=== PATIENT | male | born 1940 | race Caucasian/White ===

== ENCOUNTER 2020-08-25 12:03 | Inpatient (IN) ==
[2020-08-25] MEDS ORDERED: *HR* OxyCODONE/APAP 5/325 TABLET PO PRN (17:22)
[2020-08-25] MEDS: *HR* Heparin 5,000 UNIT/ML VIAL SQ SCH (18:57)
[2020-08-25] MEDS ORDERED: *HR* Warfarin 3 MG TABLET PO SCH (19:01)
[2020-08-25] MEDS: Sennosides/Docusate Sodium TABLET PO SCH (21:33)
[2020-08-25] MEDS: Metoprolol XL (24 HR) Succ 50 MG TAB.ER.24H PO SCH (21:34)
[2020-08-25] MEDS: Cholecalciferol (D-3) 1,000 UNIT (25MCG) TABLET PO SCH (22:11)
[2020-08-26] MEDS: *HR* Heparin 5,000 UNIT/ML VIAL SQ SCH (06:03)
[2020-08-26 06:51] LABS: Basophils % 0.6 %; Eosinophils # 0.3 K/mcL (0.0-0.6); Eosinophils % 3.6 %; Hemoglobin 10.1 g/dL (12.9-16.9); Immature Granulocytes % 0.6 % (0-4); Lymphocytes # 0.5 K/mcL (0.6-4.6); Lymphocytes % 7.8 %; Mean Corpuscular HGB Conc 32.6 g/dL (31.6-35.5); Mean Corpuscular Hemoglobin 35.8 pg (28.0-33.3); Mean Corpuscular Volume 109.9 fL (83.0-100.0); Monocytes % 14.8 %; Platelet Count 181 K/mcL (140-400); Red Blood Count 2.82 M/mcL (4.19-5.50); Red Cell Distribution Width 16.9 % (11.5-14.5); Segmented Neutrophils % 72.6 %; White Blood Count 6.9 K/mcL (4.3-11.1)
[2020-08-26 07:15] LABS: BUN/Creatinine Ratio 23 (6-26); Blood Urea Nitrogen 20 mg/dL (8-23); Calcium 8.5 mg/dL (8.6-10.3); Carbon Dioxide 28 mEq/L (23-29); Chloride 104 mEq/L (98-107); Glucose 84 mg/dL (70-105); Osmolality,Calculated 292 (280-300); Potassium 4.1 mEq/L (3.5-5.1); Sodium 140 mEq/L (136-145); eGFR For African Americans > 60 (> 60); eGFR For Non-African Americans > 60 (> 60)
[2020-08-26] MEDS ORDERED: LUTEIN PO SCH (09:00)
[2020-08-26] MEDS ORDERED: Cholecalciferol (D-3) 1,000 UNIT (25MCG) TABLET PO SCH (09:00)
[2020-08-26] MEDS ORDERED: NON-FORMULARY MEDICATION 1 EACH EACH (Fish Oil/Dha/Epa [Fish Oil 1,200 Mg Fish Oil] 1 EACH PO SCH (09:00)
[2020-08-26] MEDS ORDERED: ZEAXANTHIN PO SCH (09:00)
[2020-08-26] MEDS ORDERED: [UNRECOGNIZED DRUG - OTHER] PO SCH (09:00)
[2020-08-26] MEDS: Budesonide/Formoterol 160/4.5 1 PUFF INH IH SCH ×2 (09:27→21:33)
[2020-08-26] MEDS: lisinopriL 5 MG TABLET PO SCH (09:48)
[2020-08-26] MEDS: Cholecalciferol (D-3) 1,000 UNIT (25MCG) TABLET PO SCH ×2 (09:48→21:06)
[2020-08-26] MEDS: Metoprolol XL (24 HR) Succ 50 MG TAB.ER.24H PO SCH ×2 (09:50→21:07)
[2020-08-26] MEDS: Lactobacillus 1 EACH CAP.SPRINK PO SCH (09:50)
[2020-08-26] MEDS: Folic Acid 1 MG TABLET PO SCH (09:51)
[2020-08-26] MEDS: Multivit/Ca/Min/Fe/FA 1 TAB TABLET PO SCH (09:52)
[2020-08-26] MEDS: Aspirin Enteric Coated 81 MG Tablet PO SCH (09:52)
[2020-08-26] MEDS: predniSONE 5 MG TABLET PO SCH (09:52)
[2020-08-26] MEDS: predniSONE 1 MG TABLET PO SCH (09:53)
[2020-08-26] MEDS: Fluticasone Propionate Nasal 50 MCG/SPRAY BOTTLE NS SCH (09:53)
[2020-08-26] MEDS: Furosemide 40 MG TABLET PO SCH (09:53)
[2020-08-26] MEDS: Sennosides/Docusate Sodium TABLET PO SCH ×2 (09:57→21:06)
[2020-08-26 11:16] LABS: INR 2.2; Prothrombin Time 24.4 Seconds (9.4-12.1)
[2020-08-26] MEDS ORDERED: *HR* Warfarin 3 MG TABLET PO SCH (18:00)
[2020-08-26] MEDS ORDERED: *HR* Warfarin 3 MG TABLET PO ONE (18:00)
[2020-08-26] MEDS ORDERED: Warfarin perPT PO PRN (18:00)
[2020-08-27 06:04] LABS: INR 2.6; Prothrombin Time 28.8 Seconds (9.4-12.1)
[2020-08-27] MEDS: Lactobacillus 1 EACH CAP.SPRINK PO SCH (09:49)
[2020-08-27] MEDS: Folic Acid 1 MG TABLET PO SCH (09:49)
[2020-08-27] MEDS: Aspirin Enteric Coated 81 MG Tablet PO SCH (09:49)
[2020-08-27] MEDS: lisinopriL 5 MG TABLET PO SCH (09:50)
[2020-08-27] MEDS: Sennosides/Docusate Sodium TABLET PO SCH ×2 (09:50→20:04)
[2020-08-27] MEDS: Metoprolol XL (24 HR) Succ 50 MG TAB.ER.24H PO SCH ×2 (09:50→20:05)
[2020-08-27] MEDS: Furosemide 40 MG TABLET PO SCH (09:50)
[2020-08-27] MEDS: predniSONE 5 MG TABLET PO SCH (09:50)
[2020-08-27] MEDS: predniSONE 1 MG TABLET PO SCH (09:50)
[2020-08-27] MEDS: Cholecalciferol (D-3) 1,000 UNIT (25MCG) TABLET PO SCH ×2 (09:51→20:04)
[2020-08-27] MEDS: Multivit/Ca/Min/Fe/FA 1 TAB TABLET PO SCH (09:51)
[2020-08-27] MEDS: Fluticasone Propionate Nasal 50 MCG/SPRAY BOTTLE NS SCH (09:51)
[2020-08-27] MEDS: Budesonide/Formoterol 160/4.5 1 PUFF INH IH SCH ×2 (10:14→21:03)
[2020-08-27] MEDS ORDERED: *HR* Warfarin 2 MG TABLET PO ONE (18:00)
[2020-08-27] MEDS ORDERED: *HR* Warfarin 3 MG TABLET PO SCH (18:00)
[2020-08-28 05:23] LABS: INR 2.6
[2020-08-28] MEDS: Furosemide 40 MG TABLET PO SCH (09:41)
[2020-08-28] MEDS: Metoprolol XL (24 HR) Succ 50 MG TAB.ER.24H PO SCH ×2 (09:41→19:58)
[2020-08-28] MEDS: Multivit/Ca/Min/Fe/FA 1 TAB TABLET PO SCH (09:41)
[2020-08-28] MEDS: Folic Acid 1 MG TABLET PO SCH (09:41)
[2020-08-28] MEDS: Aspirin Enteric Coated 81 MG Tablet PO SCH (09:41)
[2020-08-28] MEDS: Sennosides/Docusate Sodium TABLET PO SCH ×2 (09:42→19:56)
[2020-08-28] MEDS: Cholecalciferol (D-3) 1,000 UNIT (25MCG) TABLET PO SCH ×2 (09:42→19:56)
[2020-08-28] MEDS: lisinopriL 5 MG TABLET PO SCH (09:42)
[2020-08-28] MEDS: Lactobacillus 1 EACH CAP.SPRINK PO SCH (09:42)
[2020-08-28] MEDS: predniSONE 5 MG TABLET PO SCH (09:42)
[2020-08-28] MEDS: predniSONE 1 MG TABLET PO SCH (09:42)
[2020-08-28] MEDS: Fluticasone Propionate Nasal 50 MCG/SPRAY BOTTLE NS SCH (10:00)
[2020-08-28] MEDS: Budesonide/Formoterol 160/4.5 1 PUFF INH IH SCH ×2 (10:22→22:14)
[2020-08-28] MEDS ORDERED: *HR* Warfarin 2 MG TABLET PO ONE (18:00)
[2020-08-29 05:18] LABS: INR 2.7; Prothrombin Time 30.3 Seconds (9.4-12.1)
[2020-08-29] MEDS: Budesonide/Formoterol 160/4.5 1 PUFF INH IH SCH ×2 (08:58→22:41)
[2020-08-29] MEDS: Sennosides/Docusate Sodium TABLET PO SCH ×2 (09:17→19:50)
[2020-08-29] MEDS: Folic Acid 1 MG TABLET PO SCH (09:17)
[2020-08-29] MEDS: Lactobacillus 1 EACH CAP.SPRINK PO SCH (09:17)
[2020-08-29] MEDS: lisinopriL 5 MG TABLET PO SCH (09:18)
[2020-08-29] MEDS: Metoprolol XL (24 HR) Succ 50 MG TAB.ER.24H PO SCH ×2 (09:18→19:51)
[2020-08-29] MEDS: predniSONE 5 MG TABLET PO SCH (09:18)
[2020-08-29] MEDS: predniSONE 1 MG TABLET PO SCH (09:18)
[2020-08-29] MEDS: Fluticasone Propionate Nasal 50 MCG/SPRAY BOTTLE NS SCH (09:18)
[2020-08-29] MEDS: Cholecalciferol (D-3) 1,000 UNIT (25MCG) TABLET PO SCH ×2 (09:18→19:51)
[2020-08-29] MEDS: Furosemide 40 MG TABLET PO SCH (09:18)
[2020-08-29] MEDS: Aspirin Enteric Coated 81 MG Tablet PO SCH (09:18)
[2020-08-29] MEDS: Multivit/Ca/Min/Fe/FA 1 TAB TABLET PO SCH (09:18)
[2020-08-29] MEDS ORDERED: *HR* Warfarin 2 MG TABLET PO ONE (18:00)
[2020-08-30] MEDS: Cholecalciferol (D-3) 1,000 UNIT (25MCG) TABLET PO SCH ×2 (08:53→21:14)
[2020-08-30] MEDS: Furosemide 40 MG TABLET PO SCH (08:54)
[2020-08-30] MEDS: predniSONE 5 MG TABLET PO SCH (08:54)
[2020-08-30] MEDS: Lactobacillus 1 EACH CAP.SPRINK PO SCH (08:54)
[2020-08-30] MEDS: Sennosides/Docusate Sodium TABLET PO SCH ×2 (08:54→21:15)
[2020-08-30] MEDS: Multivit/Ca/Min/Fe/FA 1 TAB TABLET PO SCH (08:54)
[2020-08-30] MEDS: Metoprolol XL (24 HR) Succ 50 MG TAB.ER.24H PO SCH ×2 (08:54→21:15)
[2020-08-30] MEDS: Folic Acid 1 MG TABLET PO SCH (08:54)
[2020-08-30] MEDS: predniSONE 1 MG TABLET PO SCH (08:55)
[2020-08-30] MEDS: Aspirin Enteric Coated 81 MG Tablet PO SCH (08:55)
[2020-08-30] MEDS: lisinopriL 5 MG TABLET PO SCH (08:55)
[2020-08-30] MEDS: Fluticasone Propionate Nasal 50 MCG/SPRAY BOTTLE NS SCH (09:01)
[2020-08-30] MEDS: Budesonide/Formoterol 160/4.5 1 PUFF INH IH SCH ×2 (09:16→22:32)
[2020-08-30 09:35] LABS: INR 2.6; Prothrombin Time 29.3 Seconds (9.4-12.1)
[2020-08-30] MEDS ORDERED: *HR* Warfarin 3 MG TABLET PO ONE (18:00)
[2020-08-31 05:51] LABS: INR 2.4; Prothrombin Time 27.3 Seconds (9.4-12.1)
[2020-08-31] MEDS: Budesonide/Formoterol 160/4.5 1 PUFF INH IH SCH ×2 (09:03→22:32)
[2020-08-31] MEDS: Metoprolol XL (24 HR) Succ 50 MG TAB.ER.24H PO SCH ×2 (09:04→19:55)
[2020-08-31] MEDS: Lactobacillus 1 EACH CAP.SPRINK PO SCH (09:04)
[2020-08-31] MEDS: Sennosides/Docusate Sodium TABLET PO SCH ×2 (09:04→19:55)
[2020-08-31] MEDS: Multivit/Ca/Min/Fe/FA 1 TAB TABLET PO SCH (09:04)
[2020-08-31] MEDS: Aspirin Enteric Coated 81 MG Tablet PO SCH (09:04)
[2020-08-31] MEDS: predniSONE 5 MG TABLET PO SCH (09:05)
[2020-08-31] MEDS: Folic Acid 1 MG TABLET PO SCH (09:05)
[2020-08-31] MEDS: Cholecalciferol (D-3) 1,000 UNIT (25MCG) TABLET PO SCH ×2 (09:05→19:55)
[2020-08-31] MEDS: lisinopriL 5 MG TABLET PO SCH (09:05)
[2020-08-31] MEDS: predniSONE 1 MG TABLET PO SCH (09:06)
[2020-08-31] MEDS: Furosemide 40 MG TABLET PO SCH (09:06)
[2020-08-31] MEDS: Methotrexate PFS 25 MG/ML VIAL SQ SCH (09:09)
[2020-08-31] MEDS: Fluticasone Propionate Nasal 50 MCG/SPRAY BOTTLE NS SCH (09:09)
[2020-08-31] MEDS ORDERED: Bisacodyl 10 MG RECTAL SUPPOSITORY RC ONE (17:30)
[2020-08-31] MEDS ORDERED: *HR* Warfarin 3 MG TABLET PO ONE (18:00)
[2020-09-01 07:16] LABS: Basophils % 0.5 %; Eosinophils # 0.2 K/mcL (0.0-0.6); Eosinophils % 3.2 %; Hematocrit 31.9 % (37.5-50.1); Hemoglobin 10.6 g/dL (12.9-16.9); Immature Granulocytes % 0.6 % (0-4); Lymphocytes # 0.5 K/mcL (0.6-4.6); Lymphocytes % 7.4 %; Mean Corpuscular HGB Conc 33.2 g/dL (31.6-35.5); Mean Corpuscular Hemoglobin 36.2 pg (28.0-33.3); Mean Corpuscular Volume 108.9 fL (83.0-100.0); Mean Platelet Volume 10.1 fL (9.4-12.4); Monocytes # 0.9 K/mcL (0.0-1.3); Monocytes % 14.3 %; Neutrophils # 4.8 K/mcL (1.6-8.9); Platelet Count 191 K/mcL (140-400); Red Blood Count 2.93 M/mcL (4.19-5.50); Red Cell Distribution Width 16.8 % (11.5-14.5); White Blood Count 6.5 K/mcL (4.3-11.1)
[2020-09-01 07:24] LABS: INR 2.6; Prothrombin Time 29.5 Seconds (9.4-12.1)
[2020-09-01 07:36] LABS: BUN/Creatinine Ratio 24 (6-26); Blood Urea Nitrogen 19 mg/dL (8-23); Calcium 8.2 mg/dL (8.6-10.3); Carbon Dioxide 27 mEq/L (23-29); Chloride 105 mEq/L (98-107); Glucose 82 mg/dL (70-105); Osmolality,Calculated 293 (280-300); Potassium 3.5 mEq/L (3.5-5.1); Sodium 141 mEq/L (136-145); eGFR For African Americans > 60 (> 60); eGFR For Non-African Americans > 60 (> 60)
[2020-09-01] MEDS: Metoprolol XL (24 HR) Succ 50 MG TAB.ER.24H PO SCH ×2 (10:03→20:09)
[2020-09-01] MEDS: Lactobacillus 1 EACH CAP.SPRINK PO SCH (10:03)
[2020-09-01] MEDS: Multivit/Ca/Min/Fe/FA 1 TAB TABLET PO SCH (10:04)
[2020-09-01] MEDS: Furosemide 40 MG TABLET PO SCH (10:04)
[2020-09-01] MEDS: lisinopriL 5 MG TABLET PO SCH (10:04)
[2020-09-01] MEDS: Folic Acid 1 MG TABLET PO SCH (10:04)
[2020-09-01] MEDS: predniSONE 1 MG TABLET PO SCH (10:04)
[2020-09-01] MEDS: predniSONE 5 MG TABLET PO SCH (10:04)
[2020-09-01] MEDS: Sennosides/Docusate Sodium TABLET PO SCH ×2 (10:04→20:10)
[2020-09-01] MEDS: Cholecalciferol (D-3) 1,000 UNIT (25MCG) TABLET PO SCH ×2 (10:04→20:10)
[2020-09-01] MEDS: Aspirin Enteric Coated 81 MG Tablet PO SCH (10:04)
[2020-09-01] MEDS: Fluticasone Propionate Nasal 50 MCG/SPRAY BOTTLE NS SCH (10:14)
[2020-09-01] MEDS: Budesonide/Formoterol 160/4.5 1 PUFF INH IH SCH ×2 (10:28→22:11)
[2020-09-01] MEDS ORDERED: *HR* Warfarin 2.5 MG TABLET PO ONE (18:00)
[2020-09-02 06:01] LABS: INR 3.8; Prothrombin Time 42.3 Seconds (9.4-12.1)
[2020-09-02] MEDS: Aspirin Enteric Coated 81 MG Tablet PO SCH (09:53)
[2020-09-02] MEDS: predniSONE 5 MG TABLET PO SCH (09:54)
[2020-09-02] MEDS: Folic Acid 1 MG TABLET PO SCH (09:54)
[2020-09-02] MEDS: Metoprolol XL (24 HR) Succ 50 MG TAB.ER.24H PO SCH ×2 (09:54→19:54)
[2020-09-02] MEDS: predniSONE 1 MG TABLET PO SCH (09:54)
[2020-09-02] MEDS: Sennosides/Docusate Sodium TABLET PO SCH ×2 (09:54→19:53)
[2020-09-02] MEDS: Cholecalciferol (D-3) 1,000 UNIT (25MCG) TABLET PO SCH ×2 (09:54→19:54)
[2020-09-02] MEDS: Multivit/Ca/Min/Fe/FA 1 TAB TABLET PO SCH (09:54)
[2020-09-02] MEDS: Furosemide 40 MG TABLET PO SCH (09:55)
[2020-09-02] MEDS: lisinopriL 5 MG TABLET PO SCH (09:55)
[2020-09-02] MEDS: Lactobacillus 1 EACH CAP.SPRINK PO SCH (09:55)
[2020-09-02] MEDS: Fluticasone Propionate Nasal 50 MCG/SPRAY BOTTLE NS SCH (09:59)
[2020-09-02] MEDS: Budesonide/Formoterol 160/4.5 1 PUFF INH IH SCH ×2 (10:14→21:35)
[2020-09-03 05:35] LABS: INR 3.8; Prothrombin Time 42.4 Seconds (9.4-12.1)
[2020-09-03] MEDS: Budesonide/Formoterol 160/4.5 1 PUFF INH IH SCH ×2 (09:38→22:09)
[2020-09-03] MEDS: Multivit/Ca/Min/Fe/FA 1 TAB TABLET PO SCH (09:46)
[2020-09-03] MEDS: Cholecalciferol (D-3) 1,000 UNIT (25MCG) TABLET PO SCH ×2 (09:46→21:11)
[2020-09-03] MEDS: Metoprolol XL (24 HR) Succ 50 MG TAB.ER.24H PO SCH ×2 (09:46→21:11)
[2020-09-03] MEDS: Folic Acid 1 MG TABLET PO SCH (09:46)
[2020-09-03] MEDS: Lactobacillus 1 EACH CAP.SPRINK PO SCH (09:46)
[2020-09-03] MEDS: lisinopriL 5 MG TABLET PO SCH (09:46)
[2020-09-03] MEDS: Sennosides/Docusate Sodium TABLET PO SCH ×2 (09:47→21:11)
[2020-09-03] MEDS: Furosemide 40 MG TABLET PO SCH (09:47)
[2020-09-03] MEDS: predniSONE 5 MG TABLET PO SCH (09:47)
[2020-09-03] MEDS: Aspirin Enteric Coated 81 MG Tablet PO SCH (09:47)
[2020-09-03] MEDS: predniSONE 1 MG TABLET PO SCH (09:47)
[2020-09-03] MEDS: Fluticasone Propionate Nasal 50 MCG/SPRAY BOTTLE NS SCH (09:54)
[2020-09-04 05:50] LABS: INR 2.4
[2020-09-04] MEDS: Lactobacillus 1 EACH CAP.SPRINK PO SCH (09:12)
[2020-09-04] MEDS: Folic Acid 1 MG TABLET PO SCH (09:12)
[2020-09-04] MEDS: predniSONE 5 MG TABLET PO SCH (09:12)
[2020-09-04] MEDS: Aspirin Enteric Coated 81 MG Tablet PO SCH (09:12)
[2020-09-04] MEDS: Multivit/Ca/Min/Fe/FA 1 TAB TABLET PO SCH (09:12)
[2020-09-04] MEDS: Cholecalciferol (D-3) 1,000 UNIT (25MCG) TABLET PO SCH ×2 (09:12→20:54)
[2020-09-04] MEDS: predniSONE 1 MG TABLET PO SCH (09:13)
[2020-09-04] MEDS: Metoprolol XL (24 HR) Succ 50 MG TAB.ER.24H PO SCH ×2 (09:13→20:54)
[2020-09-04] MEDS: lisinopriL 5 MG TABLET PO SCH (09:14)
[2020-09-04] MEDS: Furosemide 40 MG TABLET PO SCH (09:14)
[2020-09-04] MEDS: Sennosides/Docusate Sodium TABLET PO SCH ×2 (09:14→20:53)
[2020-09-04] MEDS: Fluticasone Propionate Nasal 50 MCG/SPRAY BOTTLE NS SCH (09:31)
[2020-09-04] MEDS: Budesonide/Formoterol 160/4.5 1 PUFF INH IH SCH ×2 (10:08→21:57)
[2020-09-04] MEDS ORDERED: *HR* Warfarin 2 MG TABLET PO ONE (18:00)
[2020-09-05 07:24] LABS: INR 1.6; Prothrombin Time 18.1 Seconds (9.4-12.1)
[2020-09-05] MEDS: Sennosides/Docusate Sodium TABLET PO SCH ×2 (10:01→22:26)
[2020-09-05] MEDS: predniSONE 5 MG TABLET PO SCH (10:01)
[2020-09-05] MEDS: Cholecalciferol (D-3) 1,000 UNIT (25MCG) TABLET PO SCH ×2 (10:01→22:26)
[2020-09-05] MEDS: Furosemide 40 MG TABLET PO SCH (10:02)
[2020-09-05] MEDS: Lactobacillus 1 EACH CAP.SPRINK PO SCH (10:02)
[2020-09-05] MEDS: lisinopriL 5 MG TABLET PO SCH (10:02)
[2020-09-05] MEDS: Metoprolol XL (24 HR) Succ 50 MG TAB.ER.24H PO SCH ×2 (10:02→22:26)
[2020-09-05] MEDS: Multivit/Ca/Min/Fe/FA 1 TAB TABLET PO SCH (10:02)
[2020-09-05] MEDS: Aspirin Enteric Coated 81 MG Tablet PO SCH (10:03)
[2020-09-05] MEDS: Folic Acid 1 MG TABLET PO SCH (10:03)
[2020-09-05] MEDS: predniSONE 1 MG TABLET PO SCH (10:03)
[2020-09-05] MEDS: Fluticasone Propionate Nasal 50 MCG/SPRAY BOTTLE NS SCH (10:06)
[2020-09-05] MEDS: Budesonide/Formoterol 160/4.5 1 PUFF INH IH SCH ×2 (10:36→22:10)
[2020-09-05] MEDS ORDERED: *HR* Warfarin 2 MG TABLET PO ONE (18:00)
[2020-09-06 05:30] LABS: INR 1.9; Prothrombin Time 21.1 Seconds (9.4-12.1)
[2020-09-06] MEDS: Sennosides/Docusate Sodium TABLET PO SCH ×2 (09:36→21:02)
[2020-09-06] MEDS: Multivit/Ca/Min/Fe/FA 1 TAB TABLET PO SCH (09:36)
[2020-09-06] MEDS: predniSONE 1 MG TABLET PO SCH (09:37)
[2020-09-06] MEDS: Lactobacillus 1 EACH CAP.SPRINK PO SCH (09:37)
[2020-09-06] MEDS: Cholecalciferol (D-3) 1,000 UNIT (25MCG) TABLET PO SCH ×2 (09:38→21:02)
[2020-09-06] MEDS: Fluticasone Propionate Nasal 50 MCG/SPRAY BOTTLE NS SCH (09:38)
[2020-09-06] MEDS: Folic Acid 1 MG TABLET PO SCH (09:38)
[2020-09-06] MEDS: predniSONE 5 MG TABLET PO SCH (09:39)
[2020-09-06] MEDS: Aspirin Enteric Coated 81 MG Tablet PO SCH (09:40)
[2020-09-06] MEDS ORDERED: Metoprolol XL (24 HR) Succ 50 MG TAB.ER.24H PO STA (09:47)
[2020-09-06] MEDS: lisinopriL 5 MG TABLET PO SCH (09:50)
[2020-09-06] MEDS: Metoprolol XL (24 HR) Succ 50 MG TAB.ER.24H PO SCH (09:50)
[2020-09-06] MEDS: Furosemide 40 MG TABLET PO SCH (09:50)
[2020-09-06] MEDS: Budesonide/Formoterol 160/4.5 1 PUFF INH IH SCH ×2 (10:31→22:10)
[2020-09-06] MEDS: Triamcinolone Acet 0.1% CRM 15 GM TUBE TP SCH ×2 (16:05→21:04)
[2020-09-06] MEDS ORDERED: *HR* Warfarin 2 MG TABLET PO ONE (18:00)
[2020-09-07 06:52] LABS: Basophils # 0.1 K/mcL (0.0-0.2); Basophils % 0.7 %; Eosinophils # 0.3 K/mcL (0.0-0.6); Eosinophils % 3.7 %; Hematocrit 31.4 % (37.5-50.1); Hemoglobin 10.4 g/dL (12.9-16.9); Immature Granulocytes % 0.8 % (0-4); Lymphocytes # 0.7 K/mcL (0.6-4.6); Lymphocytes % 7.8 %; Mean Corpuscular HGB Conc 33.1 g/dL (31.6-35.5); Mean Corpuscular Hemoglobin 36.2 pg (28.0-33.3); Mean Corpuscular Volume 109.4 fL (83.0-100.0); Mean Platelet Volume 10.9 fL (9.4-12.4); Monocytes % 12.2 %; Neutrophils # 6.3 K/mcL (1.6-8.9); Nucleated Red Blood Cells 0.2 /100 WBC (0); Platelet Count 188 K/mcL (140-400); Red Blood Count 2.87 M/mcL (4.19-5.50); Red Cell Distribution Width 16.9 % (11.5-14.5); Segmented Neutrophils % 74.8 %; White Blood Count 8.4 K/mcL (4.3-11.1)
[2020-09-07 06:58] LABS: INR 1.7; Prothrombin Time 19.1 Seconds (9.4-12.1)
[2020-09-07] MEDS: Lactobacillus 1 EACH CAP.SPRINK PO SCH (08:18)
[2020-09-07] MEDS: Cholecalciferol (D-3) 1,000 UNIT (25MCG) TABLET PO SCH ×2 (08:18→20:43)
[2020-09-07] MEDS: Furosemide 40 MG TABLET PO SCH (08:19)
[2020-09-07] MEDS: predniSONE 1 MG TABLET PO SCH (08:19)
[2020-09-07] MEDS: Aspirin Enteric Coated 81 MG Tablet PO SCH (08:19)
[2020-09-07] MEDS: Sennosides/Docusate Sodium TABLET PO SCH ×2 (08:19→20:43)
[2020-09-07] MEDS: Multivit/Ca/Min/Fe/FA 1 TAB TABLET PO SCH (08:20)
[2020-09-07] MEDS: predniSONE 5 MG TABLET PO SCH (08:20)
[2020-09-07] MEDS: Triamcinolone Acet 0.1% CRM 15 GM TUBE TP SCH ×2 (08:20→20:46)
[2020-09-07] MEDS: Folic Acid 1 MG TABLET PO SCH (08:20)
[2020-09-07] MEDS: Budesonide/Formoterol 160/4.5 1 PUFF INH IH SCH ×2 (11:05→21:59)
[2020-09-07] MEDS: Fluticasone Propionate Nasal 50 MCG/SPRAY BOTTLE NS SCH (11:14)
[2020-09-07] MEDS: Methotrexate PFS 25 MG/ML VIAL SQ SCH (11:15)
[2020-09-07 11:57] LABS: Alanine Aminotransferase 31 Units/L (7-52); Albumin 3.2 g/dL (3.5-5.7); Albumin/Globulin Ratio 1.1 (1.1-2.2); Alkaline Phosphatase 63 Units/L (34-104); Aspartate Amino Transferase 35 Units/L (13-39); BUN/Creatinine Ratio 30 (6-26); Bilirubin,Total 0.4 mg/dL (0.3-1.0); Blood Urea Nitrogen 23 mg/dL (8-23); Calcium 8.5 mg/dL (8.6-10.3); Carbon Dioxide 31 mEq/L (23-29); Chloride 103 mEq/L (98-107); Globulin 2.9 g/dL (2.4-3.5); Glucose 95 mg/dL (70-105); Osmolality,Calculated 297 (280-300); Sodium 142 mEq/L (136-145); Total Protein 6.1 g/dL (6.4-8.9); eGFR For African Americans > 60 (> 60); eGFR For Non-African Americans > 60 (> 60)
[2020-09-07] MEDS ORDERED: *HR* Warfarin 2.5 MG TABLET PO ONE (18:00)
[2020-09-08] MEDS: Budesonide/Formoterol 160/4.5 1 PUFF INH IH SCH ×2 (07:39→22:39)
[2020-09-08] MEDS: Fluticasone Propionate Nasal 50 MCG/SPRAY BOTTLE NS SCH (08:23)
[2020-09-08] MEDS: Triamcinolone Acet 0.1% CRM 15 GM TUBE TP SCH (08:24)
[2020-09-08] MEDS: Folic Acid 1 MG TABLET PO SCH (08:24)
[2020-09-08] MEDS: Multivit/Ca/Min/Fe/FA 1 TAB TABLET PO SCH (08:24)
[2020-09-08] MEDS: Lactobacillus 1 EACH CAP.SPRINK PO SCH (08:24)
[2020-09-08] MEDS: predniSONE 1 MG TABLET PO SCH (08:24)
[2020-09-08] MEDS: Sennosides/Docusate Sodium TABLET PO SCH ×2 (08:24→22:22)
[2020-09-08] MEDS: Furosemide 40 MG TABLET PO SCH (08:25)
[2020-09-08] MEDS: predniSONE 5 MG TABLET PO SCH (08:25)
[2020-09-08] MEDS: Cholecalciferol (D-3) 1,000 UNIT (25MCG) TABLET PO SCH ×2 (08:25→22:23)
[2020-09-08] MEDS: Aspirin Enteric Coated 81 MG Tablet PO SCH (08:25)
[2020-09-08 11:55] LABS: INR 1.5; Prothrombin Time 17.3 Seconds (9.4-12.1)
[2020-09-08] MEDS ORDERED: *HR* Warfarin 3 MG TABLET PO ONE (18:00)
[2020-09-09 06:31] LABS: INR 1.5; Prothrombin Time 17.5 Seconds (9.4-12.1)
[2020-09-09] MEDS: Budesonide/Formoterol 160/4.5 1 PUFF INH IH SCH ×2 (08:10→21:36)
[2020-09-09] MEDS: Furosemide 40 MG TABLET PO SCH (09:38)
[2020-09-09] MEDS: Aspirin Enteric Coated 81 MG Tablet PO SCH (09:38)
[2020-09-09] MEDS: Lactobacillus 1 EACH CAP.SPRINK PO SCH (09:39)
[2020-09-09] MEDS: Cholecalciferol (D-3) 1,000 UNIT (25MCG) TABLET PO SCH ×2 (09:39→20:56)
[2020-09-09] MEDS: Multivit/Ca/Min/Fe/FA 1 TAB TABLET PO SCH (09:39)
[2020-09-09] MEDS: predniSONE 1 MG TABLET PO SCH ×2 (09:40→09:56)
[2020-09-09] MEDS: predniSONE 5 MG TABLET PO SCH ×2 (09:40→09:56)
[2020-09-09] MEDS: Folic Acid 1 MG TABLET PO SCH (09:40)
[2020-09-09] MEDS: Sennosides/Docusate Sodium TABLET PO SCH ×2 (09:41→20:56)
[2020-09-09] MEDS: Fluticasone Propionate Nasal 50 MCG/SPRAY BOTTLE NS SCH (09:42)
[2020-09-09 10:57] LABS: Basophils % 0.4 %; Eosinophils # 0.6 K/mcL (0.0-0.6); Eosinophils % 6.1 %; Hematocrit 30.8 % (37.5-50.1); Hemoglobin 10.2 g/dL (12.9-16.9); Immature Granulocytes % 0.7 % (0-4); Lymphocytes # 0.5 K/mcL (0.6-4.6); Lymphocytes % 5.1 %; Mean Corpuscular HGB Conc 33.1 g/dL (31.6-35.5); Mean Corpuscular Volume 108.8 fL (83.0-100.0); Mean Platelet Volume 10.9 fL (9.4-12.4); Monocytes # 0.4 K/mcL (0.0-1.3); Monocytes % 4.2 %; Neutrophils # 7.5 K/mcL (1.6-8.9); Platelet Count 223 K/mcL (140-400); Red Blood Count 2.83 M/mcL (4.19-5.50); Red Cell Distribution Width 17.2 % (11.5-14.5); Segmented Neutrophils % 83.5 %
[2020-09-09 11:26] LABS: BUN/Creatinine Ratio 26 (6-26); Blood Urea Nitrogen 22 mg/dL (8-23); Calcium 8.3 mg/dL (8.6-10.3); Carbon Dioxide 29 mEq/L (23-29); Chloride 102 mEq/L (98-107); Glucose 115 mg/dL (70-105); Osmolality,Calculated 296 (280-300); Potassium 3.9 mEq/L (3.5-5.1); Sodium 141 mEq/L (136-145); eGFR For African Americans > 60 (> 60); eGFR For Non-African Americans > 60 (> 60)
[2020-09-09] MEDS ORDERED: *HR* Warfarin 3 MG TABLET PO ONE (18:00)
[2020-09-10 06:28] LABS: INR 1.7; Prothrombin Time 19.5 Seconds (9.4-12.1)
[2020-09-10] MEDS: Methotrexate PFS 25 MG/ML VIAL SQ SCH (08:45)
[2020-09-10] MEDS: Sennosides/Docusate Sodium TABLET PO SCH ×2 (09:15→20:16)
[2020-09-10] MEDS: Cholecalciferol (D-3) 1,000 UNIT (25MCG) TABLET PO SCH ×2 (09:15→20:17)
[2020-09-10] MEDS: predniSONE 5 MG TABLET PO SCH (09:15)
[2020-09-10] MEDS: Furosemide 40 MG TABLET PO SCH (09:16)
[2020-09-10] MEDS: Folic Acid 1 MG TABLET PO SCH (09:16)
[2020-09-10] MEDS: predniSONE 1 MG TABLET PO SCH (09:16)
[2020-09-10] MEDS: Multivit/Ca/Min/Fe/FA 1 TAB TABLET PO SCH (09:16)
[2020-09-10] MEDS: Aspirin Enteric Coated 81 MG Tablet PO SCH (09:16)
[2020-09-10] MEDS: Lactobacillus 1 EACH CAP.SPRINK PO SCH (09:16)
[2020-09-10] MEDS: Fluticasone Propionate Nasal 50 MCG/SPRAY BOTTLE NS SCH (09:18)
[2020-09-10] MEDS: Budesonide/Formoterol 160/4.5 1 PUFF INH IH SCH ×2 (09:55→21:55)
[2020-09-10] MEDS: predniSONE 20 MG TABLET PO SCH (16:40)
[2020-09-10] MEDS ORDERED: *HR* Warfarin 3 MG TABLET PO ONE (18:00)
[2020-09-10] MEDS ORDERED: Furosemide 20 MG/2 ML VIAL IVP ONE (18:28)
[2020-09-10] MEDS ORDERED: Ipratropium/Albuterol Neb 3 ML IH PRN (18:35)
[2020-09-11 06:11] LABS: Basophils % 0.6 %; Eosinophils # 0.2 K/mcL (0.0-0.6); Eosinophils % 3.4 %; Hematocrit 29.3 % (37.5-50.1); Hemoglobin 9.7 g/dL (12.9-16.9); Immature Granulocytes % 0.7 % (0-4); Lymphocytes # 0.7 K/mcL (0.6-4.6); Lymphocytes % 10.2 %; Mean Corpuscular HGB Conc 33.1 g/dL (31.6-35.5); Mean Corpuscular Hemoglobin 35.8 pg (28.0-33.3); Mean Corpuscular Volume 108.1 fL (83.0-100.0); Mean Platelet Volume 11.2 fL (9.4-12.4); Monocytes # 0.5 K/mcL (0.0-1.3); Monocytes % 6.8 %; Neutrophils # 5.6 K/mcL (1.6-8.9); Platelet Count 230 K/mcL (140-400); Red Blood Count 2.71 M/mcL (4.19-5.50); Red Cell Distribution Width 16.6 % (11.5-14.5); Segmented Neutrophils % 78.3 %; White Blood Count 7.1 K/mcL (4.3-11.1)
[2020-09-11 06:38] LABS: BUN/Creatinine Ratio 32 (6-26); Blood Urea Nitrogen 26 mg/dL (8-23); Calcium 8.3 mg/dL (8.6-10.3); Carbon Dioxide 31 mEq/L (23-29); Chloride 100 mEq/L (98-107); Glucose 104 mg/dL (70-105); Osmolality,Calculated 295 (280-300); Potassium 3.7 mEq/L (3.5-5.1); Sodium 140 mEq/L (136-145); eGFR For African Americans > 60 (> 60); eGFR For Non-African Americans > 60 (> 60)
[2020-09-11 06:43] LABS: INR 2.3; Prothrombin Time 25.6 Seconds (9.4-12.1)
[2020-09-11] MEDS: Fluticasone Propionate Nasal 50 MCG/SPRAY BOTTLE NS SCH (09:16)
[2020-09-11] MEDS: Sennosides/Docusate Sodium TABLET PO SCH ×2 (09:18→20:10)
[2020-09-11] MEDS: Lactobacillus 1 EACH CAP.SPRINK PO SCH (09:18)
[2020-09-11] MEDS: Folic Acid 1 MG TABLET PO SCH (09:18)
[2020-09-11] MEDS: Aspirin Enteric Coated 81 MG Tablet PO SCH (09:18)
[2020-09-11] MEDS: predniSONE 20 MG TABLET PO SCH ×2 (09:18→17:36)
[2020-09-11] MEDS: Cholecalciferol (D-3) 1,000 UNIT (25MCG) TABLET PO SCH ×2 (09:19→20:10)
[2020-09-11] MEDS: Multivit/Ca/Min/Fe/FA 1 TAB TABLET PO SCH (09:19)
[2020-09-11] MEDS: Furosemide 40 MG TABLET PO SCH (09:19)
[2020-09-11] MEDS: Budesonide/Formoterol 160/4.5 1 PUFF INH IH SCH ×2 (09:48→21:38)
[2020-09-11] MEDS ORDERED: *HR* Warfarin 2 MG TABLET PO ONE (18:00)
[2020-09-12 07:18] LABS: INR 1.9; Prothrombin Time 22.1 Seconds (9.4-12.1)
[2020-09-12] MEDS: Aspirin Enteric Coated 81 MG Tablet PO SCH (09:15)
[2020-09-12] MEDS: Lactobacillus 1 EACH CAP.SPRINK PO SCH (09:15)
[2020-09-12] MEDS: Multivit/Ca/Min/Fe/FA 1 TAB TABLET PO SCH (09:15)
[2020-09-12] MEDS: Cholecalciferol (D-3) 1,000 UNIT (25MCG) TABLET PO SCH ×2 (09:16→20:33)
[2020-09-12] MEDS: Sennosides/Docusate Sodium TABLET PO SCH ×2 (09:16→20:32)
[2020-09-12] MEDS: Folic Acid 1 MG TABLET PO SCH (09:16)
[2020-09-12] MEDS: predniSONE 20 MG TABLET PO SCH (09:17)
[2020-09-12] MEDS: Furosemide 40 MG TABLET PO SCH (09:17)
[2020-09-12] MEDS: Fluticasone Propionate Nasal 50 MCG/SPRAY BOTTLE NS SCH (09:17)
[2020-09-12] MEDS: Budesonide/Formoterol 160/4.5 1 PUFF INH IH SCH ×2 (09:34→23:17)
[2020-09-12] MEDS ORDERED: *HR* Warfarin 3 MG TABLET PO ONE (18:00)
[2020-09-13] MEDS: Sennosides/Docusate Sodium TABLET PO SCH ×2 (07:52→21:24)
[2020-09-13] MEDS: Multivit/Ca/Min/Fe/FA 1 TAB TABLET PO SCH (07:53)
[2020-09-13] MEDS: Lactobacillus 1 EACH CAP.SPRINK PO SCH (07:53)
[2020-09-13] MEDS: Aspirin Enteric Coated 81 MG Tablet PO SCH (07:53)
[2020-09-13] MEDS: Cholecalciferol (D-3) 1,000 UNIT (25MCG) TABLET PO SCH ×2 (07:53→21:23)
[2020-09-13] MEDS: Furosemide 40 MG TABLET PO SCH (07:53)
[2020-09-13] MEDS: Fluticasone Propionate Nasal 50 MCG/SPRAY BOTTLE NS SCH (07:54)
[2020-09-13] MEDS: Folic Acid 1 MG TABLET PO SCH (07:54)
[2020-09-13 07:57] LABS: INR 2.1; Prothrombin Time 23.5 Seconds (9.4-12.1)
[2020-09-13] MEDS ORDERED: predniSONE 20 MG TABLET PO SCH (09:00)
[2020-09-13] MEDS: Budesonide/Formoterol 160/4.5 1 PUFF INH IH SCH ×2 (09:22→21:37)
[2020-09-13] MEDS ORDERED: *HR* Warfarin 3 MG TABLET PO ONE (18:00)
[2020-09-14 07:17] LABS: INR 2.2; Prothrombin Time 24.4 Seconds (9.4-12.1)
[2020-09-14] MEDS: Fluticasone Propionate Nasal 50 MCG/SPRAY BOTTLE NS SCH (09:22)
[2020-09-14] MEDS: Aspirin Enteric Coated 81 MG Tablet PO SCH (09:22)
[2020-09-14] MEDS: Lactobacillus 1 EACH CAP.SPRINK PO SCH (09:23)
[2020-09-14] MEDS: predniSONE 1 MG TABLET PO SCH (09:23)
[2020-09-14] MEDS: Furosemide 40 MG TABLET PO SCH (09:23)
[2020-09-14] MEDS: Multivit/Ca/Min/Fe/FA 1 TAB TABLET PO SCH (09:23)
[2020-09-14] MEDS: Sennosides/Docusate Sodium TABLET PO SCH ×2 (09:23→21:13)
[2020-09-14] MEDS: predniSONE 5 MG TABLET PO SCH (09:23)
[2020-09-14] MEDS: Cholecalciferol (D-3) 1,000 UNIT (25MCG) TABLET PO SCH ×2 (09:23→21:14)
[2020-09-14] MEDS: Folic Acid 1 MG TABLET PO SCH (09:23)
[2020-09-14] MEDS: Methotrexate PFS 25 MG/ML VIAL SQ SCH (09:26)
[2020-09-14] MEDS: Budesonide/Formoterol 160/4.5 1 PUFF INH IH SCH ×2 (09:26→21:00)
[2020-09-14] MEDS: Loratadine 10 MG TABLET PO PRN (17:55)
[2020-09-14] MEDS ORDERED: *HR* Warfarin 3 MG TABLET PO ONE (18:00)
[2020-09-15] MEDS: Budesonide/Formoterol 160/4.5 1 PUFF INH IH SCH ×3 (05:22→22:00)
[2020-09-15 08:30] LABS: Prothrombin Time 22.8 Seconds (9.4-12.1)
[2020-09-15] MEDS: Lactobacillus 1 EACH CAP.SPRINK PO SCH (08:38)
[2020-09-15] MEDS: predniSONE 1 MG TABLET PO SCH (08:39)
[2020-09-15] MEDS: Folic Acid 1 MG TABLET PO SCH (08:39)
[2020-09-15] MEDS: Furosemide 20 MG TABLET PO SCH (08:39)
[2020-09-15] MEDS: Sennosides/Docusate Sodium TABLET PO SCH ×2 (08:39→20:02)
[2020-09-15] MEDS: Aspirin Enteric Coated 81 MG Tablet PO SCH (08:40)
[2020-09-15] MEDS: Multivit/Ca/Min/Fe/FA 1 TAB TABLET PO SCH (08:40)
[2020-09-15] MEDS: predniSONE 5 MG TABLET PO SCH (08:40)
[2020-09-15] MEDS: Cholecalciferol (D-3) 1,000 UNIT (25MCG) TABLET PO SCH ×2 (08:40→20:03)
[2020-09-15] MEDS: Fluticasone Propionate Nasal 50 MCG/SPRAY BOTTLE NS SCH (08:57)
[2020-09-15] MEDS ORDERED: *HR* Warfarin 2 MG TABLET PO ONE (18:00)
[2020-09-15] MEDS: Loratadine 10 MG TABLET PO PRN (20:03)
[2020-09-16] MEDS ORDERED: *HR* Promethazine 25 MG/ML VIAL IM ONE (01:58)
[2020-09-16 07:15] LABS: Prothrombin Time 22.2 Seconds (9.4-12.1)
[2020-09-16] MEDS: Sennosides/Docusate Sodium TABLET PO SCH ×2 (09:28→20:31)
[2020-09-16] MEDS: Aspirin Enteric Coated 81 MG Tablet PO SCH (09:29)
[2020-09-16] MEDS: Lactobacillus 1 EACH CAP.SPRINK PO SCH (09:32)
[2020-09-16] MEDS: Folic Acid 1 MG TABLET PO SCH (09:32)
[2020-09-16] MEDS: Cholecalciferol (D-3) 1,000 UNIT (25MCG) TABLET PO SCH ×2 (09:32→20:31)
[2020-09-16] MEDS: Furosemide 20 MG TABLET PO SCH (09:33)
[2020-09-16] MEDS: predniSONE 1 MG TABLET PO SCH (09:33)
[2020-09-16] MEDS: Multivit/Ca/Min/Fe/FA 1 TAB TABLET PO SCH (09:33)
[2020-09-16] MEDS: predniSONE 5 MG TABLET PO SCH (09:33)
[2020-09-16] MEDS: Fluticasone Propionate Nasal 50 MCG/SPRAY BOTTLE NS SCH (09:34)
[2020-09-16] MEDS: Budesonide/Formoterol 160/4.5 1 PUFF INH IH SCH ×2 (09:59→21:37)
[2020-09-16 15:28] LABS: Basophils # 0.1 K/mcL (0.0-0.2); Basophils % 0.6 %; Eosinophils # 0.1 K/mcL (0.0-0.6); Eosinophils % 1.1 %; Hematocrit 32.5 % (37.5-50.1); Hemoglobin 10.6 g/dL (12.9-16.9); Immature Granulocytes % 0.5 % (0-4); Lymphocytes # 0.7 K/mcL (0.6-4.6); Lymphocytes % 6.6 %; Mean Corpuscular HGB Conc 32.6 g/dL (31.6-35.5); Mean Corpuscular Hemoglobin 35.7 pg (28.0-33.3); Mean Corpuscular Volume 109.4 fL (83.0-100.0); Mean Platelet Volume 10.8 fL (9.4-12.4); Monocytes # 0.4 K/mcL (0.0-1.3); Monocytes % 4.2 %; Neutrophils # 8.8 K/mcL (1.6-8.9); Platelet Count 245 K/mcL (140-400); Red Blood Count 2.97 M/mcL (4.19-5.50); Red Cell Distribution Width 17.2 % (11.5-14.5); White Blood Count 10.1 K/mcL (4.3-11.1)
[2020-09-16 15:48] LABS: Alanine Aminotransferase 46 Units/L (7-52); Albumin 3.1 g/dL (3.5-5.7); Alkaline Phosphatase 60 Units/L (34-104); Aspartate Amino Transferase 36 Units/L (13-39); BUN/Creatinine Ratio 34 (6-26); Bilirubin,Total 0.5 mg/dL (0.3-1.0); Blood Urea Nitrogen 30 mg/dL (8-23); Calcium 8.4 mg/dL (8.6-10.3); Carbon Dioxide 27 mEq/L (23-29); Chloride 101 mEq/L (98-107); Globulin 3.1 g/dL (2.4-3.5); Glucose 172 mg/dL (70-105); Magnesium 1.9 mg/dL (1.6-2.6); Osmolality,Calculated 298 (280-300); Potassium 3.9 mEq/L (3.5-5.1); Sodium 139 mEq/L (136-145); Total Protein 6.2 g/dL (6.4-8.9); eGFR For African Americans > 60 (> 60); eGFR For Non-African Americans > 60 (> 60)
[2020-09-16] MEDS ORDERED: *HR* Warfarin 2 MG TABLET PO ONE (18:00)
[2020-09-16] MEDS: Loratadine 10 MG TABLET PO PRN (20:30)
[2020-09-16] MEDS: Melatonin 3 MG TABLET PO PRN (20:31)
[2020-09-17] MEDS ORDERED: QUEtiapine Fumarate 25 MG TABLET PO ONE (00:39)
[2020-09-17 06:33] LABS: INR 2.2
[2020-09-17 06:52] LABS: Bilirubin,Urine Negative (Negative); Blood,Urine Negative (Negative); Clarity,Urine Clear (Clear); Color,Urine Yellow (Yellow); Glucose,Urine (UA) Normal (Normal); Ketones,Urine Negative (Negative); Leukocyte Esterase,Urine Negative (Negative); Nitrite,Urine Negative (Negative); Protein,Urine Trace mg/dL (Neg-Trace); Urobilinogen,Urine Normal (Normal)
[2020-09-17] MEDS: Budesonide/Formoterol 160/4.5 1 PUFF INH IH SCH ×2 (09:12→22:16)
[2020-09-17] MEDS: Sennosides/Docusate Sodium TABLET PO SCH ×2 (09:47→21:59)
[2020-09-17] MEDS: Multivit/Ca/Min/Fe/FA 1 TAB TABLET PO SCH (09:47)
[2020-09-17] MEDS: Fluticasone Propionate Nasal 50 MCG/SPRAY BOTTLE NS SCH (09:47)
[2020-09-17] MEDS: Lactobacillus 1 EACH CAP.SPRINK PO SCH (09:47)
[2020-09-17] MEDS: Folic Acid 1 MG TABLET PO SCH (09:47)
[2020-09-17] MEDS: Cholecalciferol (D-3) 1,000 UNIT (25MCG) TABLET PO SCH ×2 (09:48→22:01)
[2020-09-17] MEDS: Furosemide 20 MG TABLET PO SCH (09:48)
[2020-09-17] MEDS: predniSONE 5 MG TABLET PO SCH (09:48)
[2020-09-17] MEDS: Aspirin Enteric Coated 81 MG Tablet PO SCH (09:48)
[2020-09-17] MEDS: predniSONE 1 MG TABLET PO SCH (09:48)
[2020-09-17] MEDS ORDERED: *HR* Warfarin 3 MG TABLET PO ONE (18:00)
[2020-09-17] MEDS: Loratadine 10 MG TABLET PO PRN (21:58)
[2020-09-17] MEDS: QUEtiapine Fumarate 25 MG TABLET PO SCH (22:00)
[2020-09-17] MEDS: Acetaminophen 325 MG TABLET PO PRN (22:00)
[2020-09-17] MEDS: Melatonin 3 MG TABLET PO PRN (22:00)
[2020-09-18 06:35] LABS: INR 2.4
[2020-09-18] MEDS: Budesonide/Formoterol 160/4.5 1 PUFF INH IH SCH ×2 (08:12→20:43)
[2020-09-18] MEDS: Folic Acid 1 MG TABLET PO SCH (09:39)
[2020-09-18] MEDS: predniSONE 1 MG TABLET PO SCH (09:39)
[2020-09-18] MEDS: Sennosides/Docusate Sodium TABLET PO SCH ×2 (09:39→20:21)
[2020-09-18] MEDS: Multivit/Ca/Min/Fe/FA 1 TAB TABLET PO SCH (09:39)
[2020-09-18] MEDS: Furosemide 20 MG TABLET PO SCH (09:39)
[2020-09-18] MEDS: Lactobacillus 1 EACH CAP.SPRINK PO SCH (09:39)
[2020-09-18] MEDS: Aspirin Enteric Coated 81 MG Tablet PO SCH (09:39)
[2020-09-18] MEDS: predniSONE 5 MG TABLET PO SCH (09:40)
[2020-09-18] MEDS: Cholecalciferol (D-3) 1,000 UNIT (25MCG) TABLET PO SCH ×2 (09:40→20:22)
[2020-09-18] MEDS: Fluticasone Propionate Nasal 50 MCG/SPRAY BOTTLE NS SCH (09:54)
[2020-09-18] MEDS ORDERED: *HR* Warfarin 3 MG TABLET PO ONE (18:00)
[2020-09-18] MEDS: QUEtiapine Fumarate 25 MG TABLET PO SCH (20:22)
[2020-09-18] MEDS: Melatonin 3 MG TABLET PO PRN (20:24)
[2020-09-19 07:02] LABS: INR 2.1; Prothrombin Time 23.9 Seconds (9.4-12.1)
[2020-09-19] MEDS: Budesonide/Formoterol 160/4.5 1 PUFF INH IH SCH ×2 (09:32→20:31)
[2020-09-19] MEDS: Sennosides/Docusate Sodium TABLET PO SCH ×2 (10:17→21:20)
[2020-09-19] MEDS: Lactobacillus 1 EACH CAP.SPRINK PO SCH (10:18)
[2020-09-19] MEDS: Aspirin Enteric Coated 81 MG Tablet PO SCH (10:18)
[2020-09-19] MEDS: predniSONE 1 MG TABLET PO SCH (10:18)
[2020-09-19] MEDS: Folic Acid 1 MG TABLET PO SCH (10:18)
[2020-09-19] MEDS: predniSONE 5 MG TABLET PO SCH (10:18)
[2020-09-19] MEDS: Cholecalciferol (D-3) 1,000 UNIT (25MCG) TABLET PO SCH ×2 (10:18→21:22)
[2020-09-19] MEDS: Furosemide 20 MG TABLET PO SCH (10:19)
[2020-09-19] MEDS: Fluticasone Propionate Nasal 50 MCG/SPRAY BOTTLE NS SCH (10:19)
[2020-09-19] MEDS: Multivit/Ca/Min/Fe/FA 1 TAB TABLET PO SCH (10:19)
[2020-09-19] MEDS: polyethylene glycoL 3350 17 GM POWD.PACK PO PRN (17:30)
[2020-09-19] MEDS: Melatonin 3 MG TABLET PO PRN (21:21)
[2020-09-19] MEDS: QUEtiapine Fumarate 25 MG TABLET PO SCH (21:21)
[2020-09-19] MEDS: Loratadine 10 MG TABLET PO PRN (21:21)
[2020-09-20 07:07] LABS: INR 2.1; Prothrombin Time 23.3 Seconds (9.4-12.1)
[2020-09-20] MEDS: Sennosides/Docusate Sodium TABLET PO SCH ×2 (08:13→20:56)
[2020-09-20] MEDS: Cholecalciferol (D-3) 1,000 UNIT (25MCG) TABLET PO SCH ×2 (08:13→20:56)
[2020-09-20] MEDS: Folic Acid 1 MG TABLET PO SCH (08:13)
[2020-09-20] MEDS: Multivit/Ca/Min/Fe/FA 1 TAB TABLET PO SCH (08:14)
[2020-09-20] MEDS: predniSONE 5 MG TABLET PO SCH (08:14)
[2020-09-20] MEDS: Lactobacillus 1 EACH CAP.SPRINK PO SCH (08:14)
[2020-09-20] MEDS: predniSONE 1 MG TABLET PO SCH (08:14)
[2020-09-20] MEDS: Furosemide 20 MG TABLET PO SCH (08:15)
[2020-09-20] MEDS: Aspirin Enteric Coated 81 MG Tablet PO SCH (08:15)
[2020-09-20] MEDS: Fluticasone Propionate Nasal 50 MCG/SPRAY BOTTLE NS SCH (08:16)
[2020-09-20] MEDS: Budesonide/Formoterol 160/4.5 1 PUFF INH IH SCH ×2 (09:56→21:22)
[2020-09-20] MEDS: polyethylene glycoL 3350 17 GM POWD.PACK PO PRN (16:24)
[2020-09-20] MEDS: QUEtiapine Fumarate 25 MG TABLET PO SCH (20:56)
[2020-09-20] MEDS: Melatonin 3 MG TABLET PO PRN (20:57)
[2020-09-21 06:03] LABS: INR 1.7; Prothrombin Time 19.9 Seconds (9.4-12.1)
[2020-09-21] MEDS: Folic Acid 1 MG TABLET PO SCH (09:24)
[2020-09-21] MEDS: Furosemide 20 MG TABLET PO SCH (09:24)
[2020-09-21] MEDS: Aspirin Enteric Coated 81 MG Tablet PO SCH (09:24)
[2020-09-21] MEDS: Lactobacillus 1 EACH CAP.SPRINK PO SCH (09:25)
[2020-09-21] MEDS: predniSONE 5 MG TABLET PO SCH (09:25)
[2020-09-21] MEDS: predniSONE 1 MG TABLET PO SCH (09:25)
[2020-09-21] MEDS: Sennosides/Docusate Sodium TABLET PO SCH ×2 (09:25→19:52)
[2020-09-21] MEDS: Cholecalciferol (D-3) 1,000 UNIT (25MCG) TABLET PO SCH ×2 (09:25→19:53)
[2020-09-21] MEDS: Multivit/Ca/Min/Fe/FA 1 TAB TABLET PO SCH (09:25)
[2020-09-21] MEDS: Methotrexate PFS 25 MG/ML VIAL SQ SCH (09:26)
[2020-09-21] MEDS: Fluticasone Propionate Nasal 50 MCG/SPRAY BOTTLE NS SCH (09:39)
[2020-09-21] MEDS: Budesonide/Formoterol 160/4.5 1 PUFF INH IH SCH ×2 (10:35→20:10)
[2020-09-21] MEDS ORDERED: *HR* Warfarin 2 MG TABLET PO ONE (18:00)
[2020-09-21] MEDS: Melatonin 3 MG TABLET PO PRN (19:53)
[2020-09-21] MEDS: QUEtiapine Fumarate 25 MG TABLET PO SCH (19:53)
[2020-09-22 07:02] LABS: INR 1.7
[2020-09-22] MEDS: Budesonide/Formoterol 160/4.5 1 PUFF INH IH SCH ×2 (09:19→21:54)
[2020-09-22] MEDS: Aspirin Enteric Coated 81 MG Tablet PO SCH (10:05)
[2020-09-22] MEDS: Furosemide 20 MG TABLET PO SCH (10:06)
[2020-09-22] MEDS: Multivit/Ca/Min/Fe/FA 1 TAB TABLET PO SCH (10:06)
[2020-09-22] MEDS: Folic Acid 1 MG TABLET PO SCH (10:06)
[2020-09-22] MEDS: predniSONE 1 MG TABLET PO SCH (10:07)
[2020-09-22] MEDS: Lactobacillus 1 EACH CAP.SPRINK PO SCH (10:07)
[2020-09-22] MEDS: Cholecalciferol (D-3) 1,000 UNIT (25MCG) TABLET PO SCH ×2 (10:07→21:37)
[2020-09-22] MEDS: Sennosides/Docusate Sodium TABLET PO SCH ×2 (10:07→21:37)
[2020-09-22] MEDS: predniSONE 5 MG TABLET PO SCH (10:07)
[2020-09-22] MEDS: Fluticasone Propionate Nasal 50 MCG/SPRAY BOTTLE NS SCH (10:08)
[2020-09-22] MEDS ORDERED: *HR* Warfarin 3 MG TABLET PO ONE (18:00)
[2020-09-22] MEDS: Melatonin 3 MG TABLET PO PRN (21:37)
[2020-09-22] MEDS: QUEtiapine Fumarate 25 MG TABLET PO SCH (21:37)
[2020-09-23 08:01] LABS: Basophils # 0.1 K/mcL (0.0-0.2); Basophils % 0.8 %; Eosinophils # 0.3 K/mcL (0.0-0.6); Eosinophils % 4.3 %; Hematocrit 34.8 % (37.5-50.1); Hemoglobin 11.3 g/dL (12.9-16.9); Immature Granulocytes % 0.5 % (0-4); Lymphocytes # 0.6 K/mcL (0.6-4.6); Lymphocytes % 8.3 %; Mean Corpuscular HGB Conc 32.5 g/dL (31.6-35.5); Mean Corpuscular Hemoglobin 35.3 pg (28.0-33.3); Mean Corpuscular Volume 108.8 fL (83.0-100.0); Mean Platelet Volume 11.5 fL (9.4-12.4); Monocytes # 0.4 K/mcL (0.0-1.3); Monocytes % 5.7 %; Neutrophils # 5.9 K/mcL (1.6-8.9); Platelet Count 247 K/mcL (140-400); Red Cell Distribution Width 17.2 % (11.5-14.5); Segmented Neutrophils % 80.4 %; White Blood Count 7.4 K/mcL (4.3-11.1)
[2020-09-23 08:17] LABS: INR 1.7; Prothrombin Time 19.1 Seconds (9.4-12.1)
[2020-09-23 08:33] LABS: BUN/Creatinine Ratio 38 (6-26); Blood Urea Nitrogen 29 mg/dL (8-23); Calcium 8.4 mg/dL (8.6-10.3); Carbon Dioxide 30 mEq/L (23-29); Chloride 102 mEq/L (98-107); Glucose 95 mg/dL (70-105); Osmolality,Calculated 298 (280-300); Potassium 3.7 mEq/L (3.5-5.1); Sodium 141 mEq/L (136-145); eGFR For African Americans > 60 (> 60); eGFR For Non-African Americans > 60 (> 60)
[2020-09-23] MEDS: Budesonide/Formoterol 160/4.5 1 PUFF INH IH SCH ×2 (09:52→20:23)
[2020-09-23] MEDS: Aspirin Enteric Coated 81 MG Tablet PO SCH (10:08)
[2020-09-23] MEDS: Cholecalciferol (D-3) 1,000 UNIT (25MCG) TABLET PO SCH ×2 (10:08→19:54)
[2020-09-23] MEDS: Sennosides/Docusate Sodium TABLET PO SCH ×2 (10:08→19:53)
[2020-09-23] MEDS: Furosemide 20 MG TABLET PO SCH (10:08)
[2020-09-23] MEDS: Multivit/Ca/Min/Fe/FA 1 TAB TABLET PO SCH (10:08)
[2020-09-23] MEDS: Lactobacillus 1 EACH CAP.SPRINK PO SCH (10:08)
[2020-09-23] MEDS: predniSONE 5 MG TABLET PO SCH (10:09)
[2020-09-23] MEDS: Folic Acid 1 MG TABLET PO SCH (10:09)
[2020-09-23] MEDS: predniSONE 1 MG TABLET PO SCH (10:09)
[2020-09-23] MEDS: Fluticasone Propionate Nasal 50 MCG/SPRAY BOTTLE NS SCH (10:10)
[2020-09-23 15:30] LABS: Albumin 3.2 g/dL (3.5-5.7); Bilirubin,Direct 0.1 mg/dL (0.0-0.2); Bilirubin,Indirect 0.5 mg/dL (0.0-1.0); Bilirubin,Total 0.6 mg/dL (0.3-1.0); Globulin 3.2 g/dL (2.4-3.5); Total Protein 6.4 g/dL (6.4-8.9)
[2020-09-23] MEDS ORDERED: *HR* Warfarin 3 MG TABLET PO ONE (18:00)
[2020-09-23] MEDS: Melatonin 3 MG TABLET PO PRN (19:54)
[2020-09-23] MEDS: QUEtiapine Fumarate 25 MG TABLET PO SCH (19:54)
[2020-09-24 08:15] LABS: INR 2.1; Prothrombin Time 23.7 Seconds (9.4-12.1)
[2020-09-24] MEDS: Lactobacillus 1 EACH CAP.SPRINK PO SCH (10:01)
[2020-09-24] MEDS: Aspirin Enteric Coated 81 MG Tablet PO SCH (10:01)
[2020-09-24] MEDS: predniSONE 1 MG TABLET PO SCH (10:02)
[2020-09-24] MEDS: Cholecalciferol (D-3) 1,000 UNIT (25MCG) TABLET PO SCH ×2 (10:02→22:18)
[2020-09-24] MEDS: predniSONE 5 MG TABLET PO SCH (10:02)
[2020-09-24] MEDS: Sennosides/Docusate Sodium TABLET PO SCH ×2 (10:02→22:18)
[2020-09-24] MEDS: Multivit/Ca/Min/Fe/FA 1 TAB TABLET PO SCH (10:02)
[2020-09-24] MEDS: Folic Acid 1 MG TABLET PO SCH (10:03)
[2020-09-24] MEDS: Furosemide 20 MG TABLET PO SCH (10:03)
[2020-09-24] MEDS: Fluticasone Propionate Nasal 50 MCG/SPRAY BOTTLE NS SCH (10:05)
[2020-09-24] MEDS: Budesonide/Formoterol 160/4.5 1 PUFF INH IH SCH ×2 (10:15→20:13)
[2020-09-24] MEDS ORDERED: *HR* Warfarin 5 MG TABLET PO ONE (18:00)
[2020-09-24] MEDS: QUEtiapine Fumarate 25 MG TABLET PO SCH (22:18)
[2020-09-25 05:45] LABS: INR 2.2; Prothrombin Time 25.1 Seconds (9.4-12.1)
[2020-09-25] MEDS: Lactobacillus 1 EACH CAP.SPRINK PO SCH (09:38)
[2020-09-25] MEDS: Multivit/Ca/Min/Fe/FA 1 TAB TABLET PO SCH (09:38)
[2020-09-25] MEDS: Sennosides/Docusate Sodium TABLET PO SCH ×2 (09:38→21:40)
[2020-09-25] MEDS: predniSONE 5 MG TABLET PO SCH (09:39)
[2020-09-25] MEDS: Aspirin Enteric Coated 81 MG Tablet PO SCH (09:39)
[2020-09-25] MEDS: Furosemide 20 MG TABLET PO SCH (09:39)
[2020-09-25] MEDS: Folic Acid 1 MG TABLET PO SCH (09:39)
[2020-09-25] MEDS: predniSONE 1 MG TABLET PO SCH (09:39)
[2020-09-25] MEDS: Cholecalciferol (D-3) 1,000 UNIT (25MCG) TABLET PO SCH ×2 (09:40→21:40)
[2020-09-25] MEDS: Fluticasone Propionate Nasal 50 MCG/SPRAY BOTTLE NS SCH (09:41)
[2020-09-25] MEDS: Budesonide/Formoterol 160/4.5 1 PUFF INH IH SCH ×2 (10:17→21:18)
[2020-09-25] MEDS ORDERED: *HR* Warfarin 5 MG TABLET PO ONE (18:00)
[2020-09-25] MEDS: QUEtiapine Fumarate 25 MG TABLET PO SCH (21:42)
[2020-09-26 06:20] LABS: INR 2.1; Prothrombin Time 24.3 Seconds (9.4-12.1)
[2020-09-26] MEDS: Aspirin Enteric Coated 81 MG Tablet PO SCH (07:52)
[2020-09-26] MEDS: Folic Acid 1 MG TABLET PO SCH (07:52)
[2020-09-26] MEDS: Furosemide 20 MG TABLET PO SCH (07:52)
[2020-09-26] MEDS: predniSONE 1 MG TABLET PO SCH (07:52)
[2020-09-26] MEDS: Lactobacillus 1 EACH CAP.SPRINK PO SCH (07:52)
[2020-09-26] MEDS: Multivit/Ca/Min/Fe/FA 1 TAB TABLET PO SCH (07:52)
[2020-09-26] MEDS: Fluticasone Propionate Nasal 50 MCG/SPRAY BOTTLE NS SCH (07:53)
[2020-09-26] MEDS: Cholecalciferol (D-3) 1,000 UNIT (25MCG) TABLET PO SCH ×2 (07:53→21:08)
[2020-09-26] MEDS: predniSONE 5 MG TABLET PO SCH (07:53)
[2020-09-26] MEDS: Sennosides/Docusate Sodium TABLET PO SCH ×2 (07:53→21:10)
[2020-09-26] MEDS: Budesonide/Formoterol 160/4.5 1 PUFF INH IH SCH ×2 (09:19→21:30)
[2020-09-26] MEDS ORDERED: *HR* Warfarin 5 MG TABLET PO ONE (18:00)
[2020-09-26] MEDS: QUEtiapine Fumarate 25 MG TABLET PO SCH (21:10)
[2020-09-27 08:05] LABS: Prothrombin Time 23.2 Seconds (9.4-12.1)
[2020-09-27] MEDS: Budesonide/Formoterol 160/4.5 1 PUFF INH IH SCH ×2 (08:17→22:43)
[2020-09-27] MEDS: Aspirin Enteric Coated 81 MG Tablet PO SCH (11:11)
[2020-09-27] MEDS: Lactobacillus 1 EACH CAP.SPRINK PO SCH (11:11)
[2020-09-27] MEDS: Folic Acid 1 MG TABLET PO SCH (11:11)
[2020-09-27] MEDS: Cholecalciferol (D-3) 1,000 UNIT (25MCG) TABLET PO SCH ×2 (11:11→22:13)
[2020-09-27] MEDS: Multivit/Ca/Min/Fe/FA 1 TAB TABLET PO SCH (11:11)
[2020-09-27] MEDS: predniSONE 1 MG TABLET PO SCH (11:12)
[2020-09-27] MEDS: Sennosides/Docusate Sodium TABLET PO SCH ×2 (11:12→17:11)
[2020-09-27] MEDS: predniSONE 5 MG TABLET PO SCH (11:12)
[2020-09-27] MEDS: Furosemide 20 MG TABLET PO SCH (11:12)
[2020-09-27] MEDS: Fluticasone Propionate Nasal 50 MCG/SPRAY BOTTLE NS SCH (11:56)
[2020-09-27] MEDS ORDERED: *HR* Warfarin 5 MG TABLET PO ONE (18:00)
[2020-09-27] MEDS: QUEtiapine Fumarate 25 MG TABLET PO SCH (22:12)
[2020-09-28] MEDS: Sennosides/Docusate Sodium TABLET PO SCH ×2 (07:37→21:06)
[2020-09-28 08:11] LABS: INR 2.1; Prothrombin Time 23.9 Seconds (9.4-12.1)
[2020-09-28] MEDS: predniSONE 1 MG TABLET PO SCH (09:50)
[2020-09-28] MEDS: Loratadine 10 MG TABLET PO PRN (09:50)
[2020-09-28] MEDS: Folic Acid 1 MG TABLET PO SCH (09:51)
[2020-09-28] MEDS: Aspirin Enteric Coated 81 MG Tablet PO SCH (09:51)
[2020-09-28] MEDS: Multivit/Ca/Min/Fe/FA 1 TAB TABLET PO SCH (09:52)
[2020-09-28] MEDS: Furosemide 20 MG TABLET PO SCH (09:52)
[2020-09-28] MEDS: Fluticasone Propionate Nasal 50 MCG/SPRAY BOTTLE NS SCH (09:53)
[2020-09-28] MEDS: Lactobacillus 1 EACH CAP.SPRINK PO SCH (09:53)
[2020-09-28] MEDS: Cholecalciferol (D-3) 1,000 UNIT (25MCG) TABLET PO SCH ×2 (09:53→21:06)
[2020-09-28] MEDS: predniSONE 5 MG TABLET PO SCH (09:53)
[2020-09-28] MEDS: Budesonide/Formoterol 160/4.5 1 PUFF INH IH SCH ×2 (10:06→20:00)
[2020-09-28] MEDS: Methotrexate PFS 25 MG/ML VIAL SQ SCH (10:12)
[2020-09-28] MEDS ORDERED: *HR* Warfarin 5 MG TABLET PO ONE (18:00)
[2020-09-28] MEDS: QUEtiapine Fumarate 25 MG TABLET PO SCH (21:06)
[2020-09-29] MEDS: Fluticasone Propionate Nasal 50 MCG/SPRAY BOTTLE NS SCH (09:43)
[2020-09-29] MEDS: Sennosides/Docusate Sodium TABLET PO SCH ×2 (09:43→20:45)
[2020-09-29] MEDS: Budesonide/Formoterol 160/4.5 1 PUFF INH IH SCH ×2 (09:46→22:54)
[2020-09-29] MEDS: Cholecalciferol (D-3) 1,000 UNIT (25MCG) TABLET PO SCH ×2 (09:54→20:45)
[2020-09-29] MEDS: predniSONE 5 MG TABLET PO SCH (09:54)
[2020-09-29] MEDS: Furosemide 20 MG TABLET PO SCH (09:54)
[2020-09-29] MEDS: predniSONE 1 MG TABLET PO SCH (09:54)
[2020-09-29] MEDS: Multivit/Ca/Min/Fe/FA 1 TAB TABLET PO SCH (09:54)
[2020-09-29] MEDS: Aspirin Enteric Coated 81 MG Tablet PO SCH (09:54)
[2020-09-29] MEDS: Folic Acid 1 MG TABLET PO SCH (09:54)
[2020-09-29] MEDS: Lactobacillus 1 EACH CAP.SPRINK PO SCH (09:55)
[2020-09-29 11:35] LABS: INR 2.2; Prothrombin Time 24.8 Seconds (9.4-12.1)
[2020-09-29] MEDS ORDERED: *HR* Warfarin 5 MG TABLET PO ONE (18:00)
[2020-09-29] MEDS: QUEtiapine Fumarate 25 MG TABLET PO SCH (20:45)
[2020-09-30 05:31] LABS: INR 2.2; Prothrombin Time 25.4 Seconds (9.4-12.1)
[2020-09-30] MEDS: Acetaminophen 325 MG TABLET PO PRN ×2 (05:51→15:54)
[2020-09-30] MEDS: Budesonide/Formoterol 160/4.5 1 PUFF INH IH SCH ×2 (09:45→21:58)
[2020-09-30] MEDS: predniSONE 1 MG TABLET PO SCH (09:46)
[2020-09-30] MEDS: Furosemide 20 MG TABLET PO SCH (09:46)
[2020-09-30] MEDS: Multivit/Ca/Min/Fe/FA 1 TAB TABLET PO SCH (09:46)
[2020-09-30] MEDS: predniSONE 5 MG TABLET PO SCH (09:46)
[2020-09-30] MEDS: Lactobacillus 1 EACH CAP.SPRINK PO SCH (09:46)
[2020-09-30] MEDS: Cholecalciferol (D-3) 1,000 UNIT (25MCG) TABLET PO SCH ×2 (09:47→21:34)
[2020-09-30] MEDS: Aspirin Enteric Coated 81 MG Tablet PO SCH (09:47)
[2020-09-30] MEDS: Sennosides/Docusate Sodium TABLET PO SCH ×2 (09:47→21:34)
[2020-09-30] MEDS: Folic Acid 1 MG TABLET PO SCH (09:47)
[2020-09-30] MEDS: Fluticasone Propionate Nasal 50 MCG/SPRAY BOTTLE NS SCH (09:48)
[2020-09-30] MEDS ORDERED: *HR* Warfarin 5 MG TABLET PO ONE (18:00)
[2020-09-30] MEDS: Melatonin 3 MG TABLET PO PRN (21:34)
[2020-09-30] MEDS: QUEtiapine Fumarate 25 MG TABLET PO SCH (21:34)
[2020-10-01 07:12] LABS: INR 2.5; Prothrombin Time 27.8 Seconds (9.4-12.1)
[2020-10-01] MEDS: Budesonide/Formoterol 160/4.5 1 PUFF INH IH SCH ×2 (10:18→22:07)
[2020-10-01] MEDS: predniSONE 1 MG TABLET PO SCH (10:31)
[2020-10-01] MEDS: Sennosides/Docusate Sodium TABLET PO SCH ×2 (10:31→20:59)
[2020-10-01] MEDS: Multivit/Ca/Min/Fe/FA 1 TAB TABLET PO SCH (10:32)
[2020-10-01] MEDS: Lactobacillus 1 EACH CAP.SPRINK PO SCH (10:32)
[2020-10-01] MEDS: Folic Acid 1 MG TABLET PO SCH (10:32)
[2020-10-01] MEDS: Furosemide 20 MG TABLET PO SCH (10:32)
[2020-10-01] MEDS: Aspirin Enteric Coated 81 MG Tablet PO SCH (10:32)
[2020-10-01] MEDS: predniSONE 5 MG TABLET PO SCH (10:33)
[2020-10-01] MEDS: Cholecalciferol (D-3) 1,000 UNIT (25MCG) TABLET PO SCH ×2 (10:33→20:59)
[2020-10-01] MEDS: Fluticasone Propionate Nasal 50 MCG/SPRAY BOTTLE NS SCH (10:33)
[2020-10-01] MEDS ORDERED: *HR* Warfarin 2 MG TABLET PO ONE (18:00)
[2020-10-01] MEDS: QUEtiapine Fumarate 25 MG TABLET PO SCH (20:58)
[2020-10-01] MEDS: Acetaminophen 325 MG TABLET PO PRN (20:58)
[2020-10-01] MEDS: Melatonin 3 MG TABLET PO PRN (20:59)
[2020-10-02 07:19] LABS: INR 2.5; Prothrombin Time 27.9 Seconds (9.4-12.1)
[2020-10-02 07:40] VITALS: BP 140/71
[2020-10-02] MEDS: Budesonide/Formoterol 160/4.5 1 PUFF INH IH SCH (09:08)
[2020-10-02] MEDS: Aspirin Enteric Coated 81 MG Tablet PO SCH (09:22)
[2020-10-02] MEDS: predniSONE 1 MG TABLET PO SCH (09:22)
[2020-10-02] MEDS: Sennosides/Docusate Sodium TABLET PO SCH (09:23)
[2020-10-02] MEDS: Cholecalciferol (D-3) 1,000 UNIT (25MCG) TABLET PO SCH (09:23)
[2020-10-02] MEDS: Multivit/Ca/Min/Fe/FA 1 TAB TABLET PO SCH (09:23)
[2020-10-02] MEDS: Lactobacillus 1 EACH CAP.SPRINK PO SCH (09:23)
[2020-10-02] MEDS: Folic Acid 1 MG TABLET PO SCH (09:23)
[2020-10-02] MEDS: predniSONE 5 MG TABLET PO SCH (09:23)
[2020-10-02] MEDS: Furosemide 20 MG TABLET PO SCH (09:23)
[2020-10-02] MEDS: Fluticasone Propionate Nasal 50 MCG/SPRAY BOTTLE NS SCH (09:24)
[2020-10-02] MEDS ORDERED: *HR* Warfarin 2 MG TABLET PO ONE (18:00)
[2020-10-05] MEDS ORDERED: Methotrexate PFS 25 MG/ML VIAL SQ SCH (09:00)
== END 2020-10-02 15:15 | disposition home health service (06) | DRG 949 ==
LOC: INPPIK 18:26
PROVIDERS: ADMIT Family Medicine; ATTEND Family Medicine